=== PATIENT | female | born 1965 | race Caucasian/White ===

== ENCOUNTER → 2017-02-16 | Outpatient (CLI) | payer BC | LOC: FIMAGING 15:32 | PROVIDERS: ATTEND Family Medicine | DX: M25.551 Pain in right hip (principal); M79.651 Pain in right thigh ==

== ENCOUNTER → 2018-08-02 | Outpatient (CLI) | payer BC | LOC: GIMAGING 11:58 → EDSTATUS 15:51 | PROVIDERS: ATTEND Family Medicine | DX: M25.561 Pain in right knee (principal) | CPT/HCPCS: 73565-PO ==

== ENCOUNTER → 2018-08-03 | Outpatient (CLI) | payer BC | LOC: GIMAGING 08:58 → EDSTATUS 15:44 | PROVIDERS: ATTEND Family Medicine | DX: M25.561 Pain in right knee (principal) | CPT/HCPCS: 73560-PO ==